=== PATIENT | male | born 1995 | race American Indian/Alaskan Native ===

== ENCOUNTER 2017-08-29 14:15 | Emergency (ER) | payer MEDICAID ==
[2017-08-29 14:29] VITALS: BP 114/70; PULSE 53; RESP 20; TEMP 98.2; O2SAT 100
--- NOTE | 2017-08-29 14:44 | C.PDOC ---
History Of Present Illness 22 y/o male with bipolar disorder and schizophrenia, hiv, not on haart, unk vl or cd4 count, c/o dental pain for several weeks, worsening. seen by [facility] dental last Wednesday for eval, has f/u appt for extraction this . no fever or facial swelling Time Seen by Provider: 08/29/17 14:27 Chief Complaint (Nursing): Dental Pain History Per: Patient History/Exam Limitations: no limitations Onset/Duration Of Symptoms: Days Current Symptoms Are (Timing): Worse Severity: Moderate Pain Scale Rating Of: 7 Quality: Positive for: "Pain" Past Medical History Reviewed: Historical Data, Nursing Documentation, Vital Signs Vital Signs: Last Vital Signs Temp 98.2 F 08/29/17 14:26 Pulse 53 L 08/29/17 14:26 Resp 20 08/29/17 14:26 BP 114/70 08/29/17 14:26 Pulse Ox 100 08/29/17 14:26 - Medical History PMH: Anxiety, Bipolar Disorder, Depression, HIV, Schizophrenia Family History: States: Unknown Family Hx - Social History Hx Alcohol Use: No Hx Substance Use: Yes (Used to) - Immunization History Hx Tetanus Toxoid Vaccination: No Hx Influenza Vaccination: No Hx Pneumococcal Vaccination: No Review Of Systems Constitutional: Negative for: Fever, Chills ENT: Positive for: Mouth Pain. Negative for: Mouth Swelling Skin: Negative for: Rash Physical Exam - Physical Exam Appears: Non-toxic, No Acute Distress Skin: Warm, Dry Head: Atraumatic, Normacephalic Eye(s): bilateral: Normal Inspection Oral Mucosa: Moist Tongue: Normal Appearing Lips: Normal Appearing Teeth: Caries Gingiva: Swelling, Tender, No Bleeding, No Abscess 1 - tooth mostly carious with mild medial gum swelling, no fluctuance noted. Throat: No Erythema, No Exudate Neck: Supple Lymphatic: No Adenopathy ED Course And Treatment O2 Sat by Pulse Oximetry: 100 Medical Decision Making Medical Decision Making: pt with carious tooth, mild adjacent gingival swelling, with no flucutuance. pt has appt with dental for this . 08/31. d/c wit amox and tylenol. Disposition Counseled Patient/Family Regarding: Diagnosis, Need For Followup, Rx Given - Disposition Disposition: HOME/ ROUTINE Disposition Time: 14:49 Condition: GOOD Additional Instructions: Please take Tylenol and antibiotics as prescribed. Follow up with dentist on Wednesday as already scheduled without fail. Prescriptions: Acetaminophen [Tylenol 325mg tab] 650 mg PO Q4 #50 tab Amoxicillin [Amoxil 500 mg Cap] 500 mg PO TID #21 cap Instructions: Tooth Decay, Adult (DC) - Clinical Impression Clinical Impression: Dental caries, Toothache
== END 2017-08-29 15:08 | disposition home or self-care (01) ==
LOC: EDSEX 14:15 → C.ER 14:15
DX: K02.9 Dental caries, unspecified (principal); K08.89 Other specified disorders of teeth and supporting structures